=== PATIENT | female | born 1985 | race Caucasian/White ===

== ENCOUNTER 2017-02-20 08:51 | Emergency (ER) | payer MEDICAID ==
[2017-02-20] MEDS ORDERED: SODIUM CHLORIDE 0.9% 1,000 ML IV ONE (09:12)
[2017-02-20] MEDS ORDERED: ONDANSETRON 4 MG/2 ML VIAL IVP STA (09:12)
[2017-02-20] MEDS ORDERED: ONDANSETRON 4 MG/2 ML VIAL ONE (09:16)
--- NOTE | 2017-02-20 09:20 | ED Physician Documentation ---
PD HPI ABD PAIN - Stated complaint Stated Complaint: VOMITING - Chief complaint Chief Complaint: Abd Pain - History obtained from History obtained from: Patient - History of Present Illness Timing - onset: Today Timing - details: Waxing and waning Associated symptoms: Vomiting, Diarrhea - Additional information Additional information: The patient is a 31-year-old female who presents with vomiting x3 this morning. She also reports diarrhea with loose stool turning to watery. She denies abdominal pain this morning. However she reports that every morning for the past 5 days she has woken up with either mild abdominal discomfort or nausea. She denies fever, dysuria, and her last menstrual period ended yesterday. She reports having similar symptoms about one year ago which she states was caused by food poisoning. Review of her medical record reveals that she was seen here twice in May of 2016, and a stool sample was positive for Campylobacter antigen, and was negative for toxigenic Clostridium diffocile. Review of Systems Constitutional: denies: Fever Nose: denies: Congestion Throat: denies: Sore throat Cardiac: denies: Chest pain / pressure Respiratory: denies: Dyspnea, Cough GI: reports: Nausea, Vomiting, Diarrhea. denies: Abdominal Pain : reports: LMP (ended yesterday.). 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 - Present Medications Home Medications: Ambulatory Orders Medication Instructions Recorded Confirmed Control 1 tab PO DAILY 02/20/17 Promethazine [Phenergan] 25 - 50 mg PO Q6H PRN #10 tab 02/20/17 - Allergies Allergies/Adverse Reactions: Allergies Allergy/AdvReac Type Severity Reaction Status Date / Time No Known Drug Allergies Allergy Verified 05/22/16 07:07 - Social History Does the pt smoke?: Yes Smoking Status: Current every day smoker Does the pt drink ETOH?: No Does the pt have substance abuse?: Yes Substance Use and Type: Marijuana - Immunizations Immunizations are current?: Yes PD ED PE NORMAL - Vitals Vital signs reviewed: Yes (normal) - General General: Alert and oriented X 3, Well developed/nourished - HEENT HEENT: Atraumatic, Pharynx benign - Neck Neck: No adenopathy, No JVD - Cardiac Cardiac: RRR, No murmur - Respiratory Respiratory: No respiratory distress, Clear bilaterally - Abdomen Abdomen: Normal bowel sounds, Soft, Non tender, No organomegaly - Back Back: No CVA TTP - Derm Derm: No rash - Extremities Extremities: No edema, No calf tenderness / cord - Neuro Neuro: Alert and oriented X 3, No motor deficit, Normal speech Results - Vitals Vitals: Oxygen O2 Source Room air - Labs Labs: Laboratory Tests 02/20/17 02/20/17 02/20/17 09:05 09:20 09:20 WBC 7.3 RBC 4.32 Hgb 14.0 Hct 40.9 MCV 94.8 MCH 32.4 H MCHC 34.2 RDW 13.7 Plt Count 265 MPV 8.5 Neut # 4.8 Lymph # 1.9 [place] # 0.4 Eos # 0.1 Baso # 0.1 Absolute Nucleated RBC 0.00 Nucleated RBCs 0.0 Sodium 140 Potassium 4.2 Chloride 104 Carbon Dioxide 27 Anion Gap 9.0 BUN 10 Creatinine 1.0 Estimated GFR (MDRD) 64 L Glucose 92 Calcium 9.8 Total Bilirubin 0.5 AST 16 ALT 12 Alkaline Phosphatase 44 Total Protein 8.6 H Albumin 5.2 Globulin 3.4 Albumin/Globulin Ratio 1.5 Lipase 23 Urine Color YELLOW Urine Clarity CLEAR Urine pH 8.0 H Ur Specific [place] 1.015 Urine Protein NEGATIVE Urine Glucose (UA) NEGATIVE Urine Ketones NEGATIVE Urine Occult Blood NEGATIVE Urine Nitrite NEGATIVE Urine Bilirubin NEGATIVE Urine Urobilinogen 0.2 (NORMAL) Ur Leukocyte Esterase NEGATIVE Ur Microscopic Review NOT INDICATED Urine Culture Comments NOT INDICATED Urine HCG, Qual NEGATIVE PD MEDICAL DECISION MAKING - ED course Complexity details: reviewed old records, reviewed results, re-evaluated patient , considered differential, d/w patient ED course: The patient's presentation is significant for vomiting and diarrhea, most consistent with gastroenteritis. Her presentation does not suggest appendicitis , diverticulitis, urinary tract infection, or biliary colic. Her abdominal examination is benign, with no tenderness to palpation. Her laboratory results , including CBC, chemistry panel, and urinalysis, are unremarkable. Treatment in the emergency department included administration of normal saline 1 L IV, and ondansetron 4 mg IV. She felt subjectively much improved following this treatment, and digits ability to drink fluids without recurrent nausea. Her abdominal exam remains benign. I discussed with her the results of her workup, symptomatic treatment and outpatient follow-up, as well as potentially worrisome signs or symptoms that should prompt reevaluation in the emergency department. Departure - Departure Disposition: 01 Home, Self Care Clinical Impression: Vomiting Qualifiers: Vomiting type: unspecified Vomiting Intractability: unspecified Nausea presence : with nausea Qualified Code(s): R11.2 - Nausea with vomiting, unspecified Condition: Stable Instructions: ED Diet Vomiting Diarrhea Follow-Up: [facility] [Provider Group] Prescriptions: Promethazine [Phenergan] 25 - 50 mg PO Q6H PRN #10 tab PRN Reason: Nausea / Vomiting Comments: Drink plenty of fluids. Considered in probiotic yogurt. You can use Phenergan as prescribed if needed for nausea. Follow up with your primary physician within 2 weeks. Call to schedule an appointment. Return to the emergency department if you develop increasing abdominal pain, persistent vomiting, or otherwise worsening symptoms. Forms: Activity restrictions Discharge Date/Time: 02/20/17 11:23
[2017-02-20 09:38] LABS: BILIRUBIN,URINE NEGATIVE (NEGATIVE)
[2017-02-20 09:41] LABS: HCG UR QUAL NEGATIVE; UA CHARGE (STRIP ONLY) YES; UR CULTURE IF IND NOT INDICATED
[2017-02-20 09:47] LABS: BASOPHILS # (AUTO) 0.1 10^3/uL (0.0-0.1); BASOPHILS % (AUTO) 1.2 %; EOSINOPHILS # (AUTO) 0.1 10^3/uL (0.0-0.7); EOSINOPHILS % (AUTO) 0.9 %; HCT - HEMATOCRIT 40.9 % (37.0-47.0); LYMPHOCYTES # (AUTO) 1.9 10^3/uL (1.5-3.5); LYMPHOCYTES % (AUTO) 26.4 %; MEAN CORPUSCULAR HEMOGLOBIN 32.4 pg (27.0-31.0); MEAN CORPUSCULAR HGB CONC 34.2 g/dL (32.0-36.0); MEAN CORPUSCULAR VOLUME 94.8 fL (81.0-99.0); MEAN PLATELET VOLUME 8.5 fL (7.9-10.8); MONOCYTES # (AUTO) 0.4 10^3/uL (0.0-1.0); NEUTROPHILS # (AUTO) 4.8 10^3/uL (1.5-6.6); NEUTROPHILS % (AUTO) 65.5 %; RED BLOOD COUNT 4.32 10^6/uL (4.20-5.40); RED CELL DISTRIBUTION WIDTH 13.7 % (12.0-15.0); UNCORRECTED WHITE BLOOD COUNT 7.3 x10^3/uL; WHITE BLOOD COUNT 7.3 x10^3/uL (4.8-10.8)
[2017-02-20 10:15] LABS: ALBUMIN/GLOBULIN RATIO 1.5 (1.0-2.2); BILIRUBIN,TOTAL 0.5 mg/dL (0.2-1.0); CALCIUM 9.8 mg/dL (8.5-10.3); POTASSIUM 4.2 mmol/L (3.5-5.0); TOTAL PROTEIN 8.6 g/dL (6.7-8.2)
[2017-02-20 11:21] VITALS: BP 118/69
== END 2017-02-20 11:23 | disposition home or self-care (01) ==
LOC: ED 08:51
DX: R11.11 Vomiting without nausea (principal); R19.7 Diarrhea, unspecified; R10.84 Generalized abdominal pain; F17.200 Nicotine dependence, unspecified, uncomplicated
CPT/HCPCS: 36415; 80053; 81001; 81003; 81025; 83690; 85025; 87086; 96361; 96374; 99283

== ENCOUNTER 2024-01-12 07:58 | Emergency (ER) | payer SELFPAY ==
--- NOTE | 2024-01-12 08:29 | ED Physician Documentation ---
PD HPI NVD - Stated complaint Stated Complaint: VOMITING,DIARRHEA,CHILLS - Chief complaint Chief Complaint: Abd Pain - History obtained from History obtained from: Patient - Additonal information Additional information: Patient is a 38-year-old female presenting for evaluation of nausea, vomiting and diarrhea for the past 3 days. Patient states she has had 4-5 episodes of loose stools daily. She also reports having difficulty keeping any p.o. intake down particularly in the morning and evenings. During the daytime she has been able to tolerate some bits of water and electrolyte replacement. However she has not been able to tolerate any solid food for the past 3 days. She did try Pepto-Bismol without any improvement. Denies blood in emesis or stools. She had an egg roll on Friday but states she has had food like this before without any issues. No recent travel. Denies recent antibiotic use. No known sick contacts.Has been urinating but no dysuria. Review of Systems Constitutional: denies: Fever Cardiac: denies: Chest pain / pressure Respiratory: denies: Dyspnea GI: reports: Nausea, Vomiting, Diarrhea. 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 - Present Medications Home Medications: Ambulatory Orders Medication Instructions Recorded Confirmed Bismuth Subsalicylate 1 tab PO PRN PRN 01/12/24 01/12/24 [Pepto-Bismol] Ondansetron Odt [Zofran] 4 mg TL Q6H PRN #10 tablet 01/12/24 - Allergies Allergies/Adverse Reactions: Allergies Allergy/AdvReac Type Severity Reaction Status Date / Time No Known Drug Allergies Allergy Verified 01/12/24 08:04 - Social History Does the pt smoke?: Yes Smoking Status: Current every day smoker Does the pt drink ETOH?: No Does the pt have substance abuse?: Yes - Immunizations Immunizations are current?: Yes PD ED PE NORMAL - General General: Alert and oriented X 3, No acute distress, Well developed/nourished - HEENT HEENT: Atraumatic, Moist mucous membranes, Pharynx benign - Neck Neck: Supple, no meningeal sign - Cardiac Cardiac: RRR, Strong equal pulses - Respiratory Respiratory: No respiratory distress, Clear bilaterally - Abdomen Abdomen: Normal bowel sounds, Soft, Non tender, Non distended - Derm Derm: Warm and dry - Neuro Neuro: Normal speech Results - Vitals Vitals: Vital Signs - 24 hr 01/12/24 01/12/24 01/12/24 08:02 10:07 10:48 Temperature 36.2 C L Heart Rate 93 93 76 Respiratory 20 16 16 Rate Blood Pressure 126/92 H 127/92 H 128/82 H O2 Saturation 99 99 100 Oxygen O2 Source Room air - Labs Labs: Laboratory Tests 01/12/24 01/12/24 01/12/24 08:43 08:43 09:05 WBC 8.0 RBC 4.44 Hgb 13.4 Hct 39.4 MCV 88.7 MCH 30.2 MCHC 34.0 RDW 12.1 Plt Count 335 MPV 9.4 Neut # (Auto) 6.3 Lymph # (Auto) 1.2 L [place] # (Auto) 0.4 Eos # (Auto) 0.0 Baso # (Auto) 0.1 Absolute Nucleated RBC 0.00 Nucleated RBC % 0.0 Sodium 138 Potassium 3.2 L Chloride 103 Carbon Dioxide 23 Anion Gap 12.0 BUN 9 Creatinine 0.9 Estimated GFR (MDRD) 70 L Glucose 95 Calcium 10.0 Total Bilirubin 0.7 AST 9 L ALT 5 L Alkaline Phosphatase 39 L Total Protein 8.0 Albumin 4.7 Globulin 3.3 Albumin/Globulin Ratio 1.4 Lipase < 10 L Urine Color YELLOW Urine Clarity CLEAR Urine pH 6.0 Ur Specific [place] 1.010 Urine Protein NEGATIVE Urine Glucose (UA) NEGATIVE Urine Ketones 40 H Urine Occult Blood SMALL H Urine Nitrite NEGATIVE Urine Bilirubin NEGATIVE Urine Urobilinogen 0.2 (NORMAL) Ur Leukocyte Esterase NEGATIVE Urine RBC 0-5 Urine WBC 0-3 Ur Squamous Epith Cells FEW Squamous Urine Bacteria Few Ur Microscopic Review INDICATED Urine Culture Comments NOT INDICATED Urine HCG, Qual NEGATIVE Stl C. diff Tox B Gene 01/12/24 09:30 WBC RBC Hgb Hct MCV MCH MCHC RDW Plt Count MPV Neut # (Auto) Lymph # (Auto) [place] # (Auto) Eos # (Auto) Baso # (Auto) Absolute Nucleated RBC Nucleated RBC % Sodium Potassium Chloride Carbon Dioxide Anion Gap BUN Creatinine Estimated GFR (MDRD) Glucose Calcium Total Bilirubin AST ALT Alkaline Phosphatase Total Protein Albumin Globulin Albumin/Globulin Ratio Lipase Urine Color Urine Clarity Urine pH Ur Specific [place] Urine Protein Urine Glucose (UA) Urine Ketones Urine Occult Blood Urine Nitrite Urine Bilirubin Urine Urobilinogen Ur Leukocyte Esterase Urine RBC Urine WBC Ur Squamous Epith Cells Urine Bacteria Ur Microscopic Review Urine Culture Comments Urine HCG, Qual Stl C. diff Tox B Gene NEGATIVE PD Medical Decision Making - ED course Complexity details: reviewed results, re-evaluated patient, d/w patient ED course: Patient with nausea, vomiting and diarrhea for few days. Abdominal exam is benign. Vital signs are stable. Labs reviewed with potassium of 3.2. Replaced with p.o. supplement. Patient feeling better after IV fluids, IV Zofran and 1.25 mg of IV droperidol. Patient does report using cannabis regularly and we discussed the possibility of this being a contributing factor which she understands. She is tolerating p.o. here with no further episodes of emesis. Was able to give a stool sample so we will still send for stool cultures. Patient is feeling better here. Counseled on concerning symptoms to return for. 0950 - No vomiting but still having nausea. Tolerating p.o. intake with potassium replacement and water. Does admit to regular cannabis use. Will try additional antiemetic therapy with droperidol which patient is agreeable to. Departure - Departure Disposition: 01 Home, Self Care Clinical Impression: Nausea vomiting and diarrhea, Hypokalemia Condition: Stable Instructions: ED Diet Vomiting Diarrhea Prescriptions: Ondansetron Odt [Zofran] 4 mg TL Q6H PRN #10 tablet PRN Reason: Nausea / Vomiting Comments: You were evaluated for nausea, vomiting and diarrhea. I sent a prescription for an antinausea medication to [facility] in [place]. We have sent a sample of stool to the lab to tested for infections and we will notify you of any abnormal results. I would recommend a bland diet today. I would recommend cutting down or abstaining from cannabis use as it could also be a contributing factor to your symptoms of nausea and vomiting. Return to the emergency department with any worsening symptoms such as development of pain or continued vomiting despite the use of medications at home. Forms: PCP List Discharge Date/Time: 01/12/24 10:48
[2024-01-12] MEDS: SODIUM CHLORIDE 0.9% 1,000 ML IV STA (08:39)
[2024-01-12] MEDS: ONDANSETRON 4 MG/2 ML VIAL IVP STA (08:40)
[2024-01-12 08:50] LABS: BASOPHILS # (AUTO) 0.1 10^3/uL (0.0-0.1); BASOPHILS % (AUTO) 0.7 %; EOSINOPHILS % (AUTO) 0.1 %; HCT - HEMATOCRIT 39.4 % (37.0-47.0); HGB - HEMOGLOBIN 13.4 g/dL (12.0-16.0); LYMPHOCYTES # (AUTO) 1.2 10^3/uL (1.5-3.5); MEAN CORPUSCULAR HEMOGLOBIN 30.2 pg (27.0-31.0); MEAN CORPUSCULAR VOLUME 88.7 fL (81.0-99.0); MEAN PLATELET VOLUME 9.4 fL (7.9-10.8); MONOCYTES # (AUTO) 0.4 10^3/uL (0.0-1.0); MONOCYTES % (AUTO) 5.2 %; NEUTROPHILS # (AUTO) 6.3 10^3/uL (1.5-6.6); NEUTROPHILS % (AUTO) 78.8 %; PLT - PLATELET COUNT 335 10^3/uL (130-450); RED BLOOD COUNT 4.44 10^6/uL (4.20-5.40); RED CELL DISTRIBUTION WIDTH 12.1 % (12.0-15.0)
[2024-01-12 09:10] LABS: ALBUMIN 4.7 g/dL (3.2-5.5); ALBUMIN/GLOBULIN RATIO 1.4 (1.0-2.2); ALKALINE PHOSPHATASE 39 IU/L (42-121); ALT ALANINE AMINOTRANSFERASE 5 IU/L (10-60); AST ASPARTATE AMINOTRANSFERASE 9 IU/L (10-42); BILIRUBIN,TOTAL 0.7 mg/dL (0.2-1.0); BUN - BLOOD UREA NITROGEN 9 mg/dL (6-20); CARBON DIOXIDE - CO2 23 mmol/L (21-32); CHLORIDE 103 mmol/L (101-111); CREATININE 0.9 mg/dL (0.6-1.3); GFR - MDRD 70 (>89); GLUCOSE 95 mg/dL (74-104); POTASSIUM 3.2 mmol/L (3.5-4.5); SODIUM 138 mmol/L (135-145)
[2024-01-12 09:11] LABS: LIPASE < 10 U/L (11-82)
[2024-01-12 09:17] LABS: BILIRUBIN,URINE NEGATIVE (NEGATIVE); GLUCOSE, URINE (UA) NEGATIVE (NEGATIVE); KETONES,URINE (UA) 40 mg/dL (NEGATIVE); LEUKOCYTE ESTERASE, URINE NEGATIVE (NEGATIVE); NITRITE,URINE NEGATIVE (NEGATIVE); OCCULT BLOOD,URINE SMALL (NEGATIVE); PROTEIN,URINE NEGATIVE (NEGATIVE); UROBILINOGEN,URINE 0.2 (NORMAL) E.U./dL (NORMAL)
[2024-01-12 09:19] LABS: CLARITY,URINE CLEAR (CLEAR)
[2024-01-12 09:20] LABS: HCG UR QUAL NEGATIVE
[2024-01-12 09:44] LABS: BACTERIA,URINE Few /HPF (None Seen); RBC,URINE 0-5 /HPF (0-5); SQUAMOUS EPITHELIAL CELL,UR FEW Squamous (<= Few); WBC,URINE 0-3 /HPF (0-5)
[2024-01-12] MEDS: POTASSIUM BICARB 25 MEQ TABLET PO ONE (09:49)
[2024-01-12] MEDS: DROPERIDOL 5 MG/2 ML VIAL IVP STA (10:06)
[2024-01-12 10:53] VITALS: BP 128/82; O2SAT 100
== END 2024-01-12 10:48 | disposition home or self-care (01) ==
LOC: ED 07:58
DX: E87.6 Hypokalemia (principal); R11.2 Nausea with vomiting, unspecified; R19.7 Diarrhea, unspecified; F17.200 Nicotine dependence, unspecified, uncomplicated
CPT/HCPCS: 36415; 80053; 81001; 81025; 83690; 85025; 87045; 87046; 87427; 87493; 96374; 96375; 99283; 99284; A9270; 81003; 87086